=== PATIENT | male | born 1940 | race Caucasian/White ===

== ENCOUNTER 2018-04-21 21:43 | Emergency (ER) | payer MEDICARE, BC ==
[2018-04-21] MEDS ORDERED: Bacitracin Zinc 1 Packet ONE (21:58)
[2018-04-21] MEDS ORDERED: Amoxicillin/Potassium Clav 875 MG TAB ONE (22:15)
[2018-04-21] MEDS ORDERED: traMADol HCl 50 MG TAB ONE (22:15)
== END 2018-04-21 22:40 | disposition home or self-care (01) ==
LOC: BURERS 21:43
DX: S51.832A Puncture wound without foreign body of left forearm, initial encounter (principal); S61.411A Laceration without foreign body of right hand, initial encounter; G47.00 Insomnia, unspecified; E78.5 Hyperlipidemia, unspecified; I10 Essential (primary) hypertension; W54.0XXA Bitten by dog, initial encounter
CPT/HCPCS: 99283

== ENCOUNTER 2018-05-27 08:34 | Outpatient (CLI) | payer MEDICARE, BC ==
--- NOTE | 2018-05-27 11:06 | RAD ---
Pa and lateral of chest: Date: 05/27/18 INDICATION: Preoperative evaluation for rotator cuff repair of the left shoulder. COMPARISON: None. FINDINGS: The lungs are clear. The cardiomediastinal silhouette is within normal limits. There is mild thoracol umbar scoliosis. There is vertebroplasty change at the expected T11 vertebral level. No definite acut e fracture is evident. There are mild vascular calcifications involving the thoracic arch. IMPRESSION: 1. No acute cardiopulmonary abnormality. 2. 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 3. Mild vascular calcifications of thoracic aorta. POS: [facility]
[2018-05-27 11:37] LABS: Hemoglobin 13.3 g/dL (14.0-18.0); Mean Corpuscular HGB CONC 33.7 g/dL (32.0-36.0); Mean Corpuscular Hemoglobin 31.5 pg (27.0-31.0); Mean Corpuscular Volume 93.4 fL (78.0-98.0); Mean Platelet Volume 8.3 fL (7.4-10.4); Platelet Count 165 thou/uL (130-400); RBC Distribution Width 12.5 % (11.5-14.5); Red Blood Cell (RBC) Count 4.21 mill/uL (4.70-6.10); White Blood Cell (WBC) Count 4.6 thou/uL (4.8-10.8)
[2018-05-27 11:42] LABS: Bilirubin Negative (Negative); Blood, Urine Negative (Negative); Clarity CLEAR (Clear); Glucose, Urine (Dipstick) Negative (Negative); Leukocyte Negative (Negative); Nitrite Negative (Negative); Protein, Urine (Dipstick) Negative (Neg-Trace); Specific Gravity, Urine 1.016 (1.002-1.036); Urobilinogen 0.2 mg/dL (0.2-1.0)
[2018-05-27 12:16] LABS: Anion Gap 11 mmol/L (10-20); BUN (Urea Nitrogen) 12 mg/dL (8.4-25.7); Calc. Creatinine Clearance 0 mL/min (70-130); Calcium 9.3 mg/dL (7.8-10.44); Carbon Dioxide 27 mmol/L (23-31); Chloride 110 mmol/L (98-107); Estimated GFR-MDRD 90; Glucose 126 mg/dL (83-110); Potassium 3.8 mmol/L (3.5-5.1); Sodium 144 mmol/L (136-145)
== END 2018-05-27 08:35 | disposition home or self-care (01) ==
LOC: BURRAD 08:34
PROVIDERS: ATTEND Orthopaedic Surgery
DX: Z01.818 Encounter for other preprocedural examination (principal); M75.102 Unspecified rotator cuff tear or rupture of left shoulder, not specified as traumatic; I70.0 Atherosclerosis of aorta
CPT/HCPCS: 36415; 71046; 80048; 81003; 85027